=== PATIENT | male | born 1990 ===

== ENCOUNTER 2025-08-23 00:08 | Emergency (ER) | payer SELFPAY ==
[~2025-08-23] VITALS: Ht 167.6 cm; Wt 90.0 kg
[2025-08-23 00:12] VITALS: BP 120/89; PULSE 105; RESP 18; O2SAT 96
== END 2025-08-23 02:52 | disposition left against medical advice (07) ==
LOC: ER 00:08
DX: M25.519 Pain in unspecified shoulder (principal); Z53.21 Procedure and treatment not carried out due to patient leaving prior to being seen by health care provider